=== PATIENT | female | born 1975 | race African-American/Black ===

== ENCOUNTER 2021-01-14 23:23 | Emergency (ER) | payer MEDICAID ==
[~2021-01-14] VITALS: Ht 170.2 cm; Wt 97.9 kg
[2021-01-14 23:48] VITALS: BP 141/84
[2021-01-15] MEDS ORDERED: TETanus/Pertussis (Acell)/Diphther VAC/PF (Tdap-Adult) 0.5ml syringe IMVAC ONE (00:35)
[2021-01-15] MEDS ORDERED: bacitracin 15gm ointment TP ONE (00:35)
== END 2021-01-15 00:55 | disposition home or self-care (01) ==
LOC: ER 23:23
DX: N64.4 Mastodynia (principal); Z79.899 Other long term (current) drug therapy; Z88.8 Allergy status to other drugs, medicaments and biological substances
CPT/HCPCS: 90471; 90715; 99283